=== PATIENT | female | born 1975 | race Caucasian/White ===

== ENCOUNTER 2020-01-10 08:02 | Outpatient (CLI) | payer BC ==
--- NOTE | 2020-01-18 11:44 | MMO ---
Bilateral MAMMO Bilat Screen [facility]. CLINICAL HISTORY: Patient is 44 years old and is seen for screening. The patient has no family history of breast cancer. The patient has no personal history of cancer. VIEWS: The views performed were: bilateral craniocaudal with tomosynthesis and bilateral mediolateral oblique with tomosynthesis. This study has been interpreted with the assistance of computer-aided detection. MAMMOGRAM FINDINGS: There are scattered fibroglandular densities. There are new calcifications with grouped or clustered distribution seen in the outer region of the right breast. In the left breast, there are no suspicious masses, calcifications or areas of architectural distortion. IMPRESSION: NEW CALCIFICATIONS IN THE RIGHT BREAST REQUIRE ADDITIONAL EVALUATION. MAGNIFICATION VIEWS ARE RECOMMENDED. THE RESULTS OF THIS EXAM WERE SENT TO THE PATIENT. ACR BI-RADS Category 0 - Incomplete: Need additional imaging evaluation. [facility] will notify the patient of the need for additional imaging services. MAMMOGRAPHY NOTE: 1. A negative mammogram report should not delay a biopsy if a dominant of clinically suspicious mass is present. 2. Approximately 10% to 15% of breast cancers are not detected by mammography. 3. Adenosis and dense breasts may obscure an underlying neoplasm. Reported by: DIEGO BEARD MD Electonically Signed: [id number]
== END 2020-01-10 08:03 | disposition home or self-care (01) ==
LOC: BICMAMMO 08:02
PROVIDERS: ATTEND Obstetrics & Gynecology
DX: Z12.31 Encounter for screening mammogram for malignant neoplasm of breast (principal); R92.1 Mammographic calcification found on diagnostic imaging of breast
CPT/HCPCS: 77063; 77067

== ENCOUNTER 2020-01-20 08:48 | Outpatient (CLI) | payer BC ==
--- NOTE | 2020-01-20 09:25 | MMO ---
Left Breast MAMMO Unilat Diag [facility]. CLINICAL HISTORY: Patient is 44 years old and is seen for diagnostic exam. VIEWS: The views performed were: . FILMS COMPARED: The present examination has been compared to a prior imaging study performed at [facility] on 01/10/2020. This study has been interpreted with the assistance of computer-aided detection. MAMMOGRAM FINDINGS: There are scattered fibroglandular densities. There are calcifications with grouped or clustered distribution seen in the middle outer region of the left breast. IMPRESSION: CALCIFICATIONS IN THE LEFT BREAST ARE SUSPICIOUS. A STEREOTACTIC BREAST BIOPSY IS RECOMMENDED. THE RESULTS OF THIS EXAM WERE SENT TO THE PATIENT. ACR BI-RADS Category 4 - Suspicious abnormality - biopsy should be considered MAMMOGRAPHY NOTE: 1. A negative mammogram report should not delay a biopsy if a dominant of clinically suspicious mass is present. 2. Approximately 10% to 15% of breast cancers are not detected by mammography. 3. Adenosis and dense breasts may obscure an underlying neoplasm. Reported by: DIEGO BEARD MD Electonically Signed: [id number]
== END 2020-01-20 08:49 | disposition home or self-care (01) ==
LOC: BICMAMMO 08:48
PROVIDERS: ATTEND Obstetrics & Gynecology
DX: R92.1 Mammographic calcification found on diagnostic imaging of breast (principal)
CPT/HCPCS: G0279

== ENCOUNTER → 2020-01-24 | Day surgery (SDC) | payer BC ==
--- NOTE | 2020-01-24 08:56 | MMO ---
EXAM: MAMMO Brst Bx Stereo Stereotactic guided biopsy marker clip placement PROVIDED CLINICAL HISTORY: Cluster of microcalcifications within the outer central left breast appear. Biopsy was requested. COMPARISON: Mammograms on 01/20/2020 and 01/10/2020 TECHNIQUE: The procedure including the risks and combinations were explained the patient, and informed consent w as obtained. Patient was placed on the stereotactic guided biopsy table in the prone position. Microcalcifications in the left breast were localized with stereotactic guidance. An area was meticul ously prepped in usual fashion. Skin and subcutaneous tissues were infiltrated with buffered 1% lidocaine with epinephrine for local anesthesia. A small skin incision was made. A 10-gauge stereotactic guided biopsy needle was advanced into the left breast followed by stereotact ic images. The needle was further advanced and imaging was again performed localizing the calcifications adjacent to the biopsy needle. A total of six 10-gauge core needle biopsy specimens we re obtained. A specimen mammogram was performed demonstrating multiple calcifications within the specimen. A biopsy marker clip was deployed at site of biopsy. Hemostasis was achieved with direct pressure, an d a dry sterile dressing was placed. A post procedure mammogram was performed and biopsy marker clip is seen at site of previous calcifications with decrease in number of microcalcifications. Patient tolerated the procedure well and without immediate complication. IMPRESSION: 1. Technically successful stereotactic guided biopsy of microcalcifications left breast. 2. Biopsy marker clip was successfully deployed at site of biopsy.
--- NOTE | 2020-01-24 08:58 | MMO ---
EXAM: MAMMO Surgial Specimen PROVIDED CLINICAL HISTORY: Microcalcifications slightly outer central left breast. Stereotactic guided breast biopsy was perform ed. COMPARISON: Stereotactic guided images on 01/24/2020 as well as mammograms on 01/19 and 01/10/2020 FINDINGS/IMPRESSION: Single specimen mammogram was provided with multiple core biopsy specimens present. There are multipl e calcifications seen within the provided obtain specimen. Pathology is currently pending.
--- NOTE | 2020-01-24 09:28 | MMO ---
EXAM: MAMMO Unilat Diag [facility] LT PROVIDED CLINICAL HISTORY: Post stereotactic guided breast biopsy of left breast microcalcifications with biopsy marker clip anil cement. COMPARISON: Mammograms on 01/10/2020 and 01/20/2020 FINDINGS: A new biopsy marker clip is seen within the central left breast at site of previously seen microcalci fications. The previously seen microcalcifications in the left breast are no longer seen. Microcalcifications were noted to be in the outer left breast on the prior CC projection. However, th e biopsy marker clip is seen more medial than the previously seen calcifications on the prior mammogram which suggests clip migration on deployment. IMPRESSION: Postbiopsy mammogram demonstrating biopsy marker clip in place in the left breast. As noted above, th e biopsy marker clip is more medial than site of previously seen microcalcifications in the left breast suggesting clip migration upon deployment.
== END ==
LOC: MAMMO 06:49
PROVIDERS: ATTEND Obstetrics & Gynecology
PROC: 0H9U3ZX Drainage of Left Breast, Percutaneous Approach, Diagnostic (ICD-10-PCS; principal; 2020-01-24)
DX: D24.2 Benign neoplasm of left breast (principal); N60.22 Fibroadenosis of left breast
CPT/HCPCS: 19081; 76098; 88305